=== PATIENT | male | born 1950 | race Caucasian/White ===

== ENCOUNTER 2018-03-08 12:24 | Outpatient (CLI) | payer MEDICARE, SELFPAY ==
--- NOTE | 2018-03-08 11:55 | DI.RAD_ITS ---
SYMPTOM/DIAGNOSIS: COUGH, SOB, R05 PA AND LATERAL CHEST: The cardiac and mediastinal contours have a normal appearance. The lungs are well inflated and clear. No infiltrate or effusion is seen. IMPRESSION: Negative chest xray.
== END 2018-03-08 12:44 ==
PROVIDERS: PCP Emergency Medicine; Visit Provider Emergency Medicine
DX: R05 Cough (principal); R06.02 Shortness of breath
CPT/HCPCS: 71046

== ENCOUNTER 2018-08-17 11:05 | Outpatient (CLI) | payer MEDICARE, SELFPAY ==
[2018-08-18 10:03] LABS: PSA, Screening 5.1 ng/ml (0-4.5)
== END 2018-08-17 11:25 ==
PROVIDERS: PCP Emergency Medicine; Visit Provider Emergency Medicine
DX: Z12.5 Encounter for screening for malignant neoplasm of prostate (principal)
CPT/HCPCS: 36415; 84153

== ENCOUNTER 2018-08-24 12:35 | Outpatient (CLI) | payer MEDICARE, SELFPAY ==
[2018-08-25 09:40] LABS: PSA, Diagnostic 3.8 ng/ml (0-4.5)
== END 2018-08-24 12:55 ==
PROVIDERS: PCP Emergency Medicine; Visit Provider Emergency Medicine
DX: R97.20 Elevated prostate specific antigen [PSA] (principal)
CPT/HCPCS: 36415; 84153

== ENCOUNTER 2019-08-22 14:15 | Outpatient (REF) | payer MEDICARE, SELFPAY ==
[2019-08-22 22:01] LABS: Calculated LDL 97 mg/dL (<100); Cholesterol 176 mg/dL (<200); HDL Cholesterol 27 mg/dL (40-60); Triglyceride 262 mg/dL (<150)
[2019-08-24 09:09] LABS: PSA, Screening 4.2 ng/mL (0.0-4.5)
== END 2019-08-22 14:35 ==
LOC: LBN 14:15
PROVIDERS: PCP Emergency Medicine; Visit Provider Emergency Medicine
DX: R07.9 Chest pain, unspecified (principal); Z12.5 Encounter for screening for malignant neoplasm of prostate
CPT/HCPCS: 80061; 84153

== ENCOUNTER 2020-08-29 09:56 | Outpatient (REF) | payer MEDICARE, SELFPAY ==
--- NOTE | 2020-08-29 08:50 | SKI_PTH ---
PATIENT: Bharat Perla LOC: [facility]#:[id number] AGE/SX: 69/M ROOM: RE08/29/[address]: Garrett Mendoza DO : 1950 BED: DIS: 08/29/2020 SPEC #: [id number] RECD: 08/29/20 12:47 STATUS: JJ RERacquel #: [id number] BRANDIE: 08/29/20 08:[address]: Garrett Mendoza DEPT: Surgical Specimen RECD BY: Vianey Bartholomew Tissues: 1 - SKIN BIOPSY(SHAVE/PUNCH) Procedures: SKIN LEVEL 4 Comments: [id number]
== END 2020-08-29 09:57 | disposition home or self-care (01) ==
LOC: NCHCN 09:56
PROVIDERS: PCP Emergency Medicine; Visit Provider Emergency Medicine
DX: L82.1 Other seborrheic keratosis (principal)
CPT/HCPCS: 88305

== ENCOUNTER 2020-09-06 11:39 | Outpatient (CLI) | payer MEDICARE, SELFPAY ==
[2020-09-06 18:32] LABS: PSA, Diagnostic 4.9 ng/mL (0.0-6.5)
== END 2020-09-06 11:40 | disposition home or self-care (01) ==
LOC: LBO 11:42
PROVIDERS: PCP Emergency Medicine; Visit Provider Emergency Medicine
DX: R97.20 Elevated prostate specific antigen [PSA] (principal)
CPT/HCPCS: 36415; 84153

== ENCOUNTER → 2021-04-17 10:01 | Outpatient (BNVA) | payer MEDICARE, SELFPAY | PROVIDERS: PCP Family Medicine; Referring Provider Emergency Medicine; Visit Provider Physical Therapy Assistant | DX: Z12.11 Encounter for screening for malignant neoplasm of colon (principal); Z86.010 Personal history of colon polyps ==

== ENCOUNTER 2021-04-30 01:34 | Outpatient (CLI) | payer MEDICARE, SELFPAY ==
[2021-04-30 11:38] LABS: Source Nasal/Nares
[2021-04-30 14:25] LABS: COVID-19 PCR Negative (Negative)
== END 2021-04-30 01:35 | disposition home or self-care (01) ==
PROVIDERS: PCP Family Medicine; Visit Provider Surgery
DX: Z20.822 Contact with and (suspected) exposure to COVID-19 (principal)
CPT/HCPCS: 87635; U0005

== ENCOUNTER 2021-05-02 07:17 | Day surgery (SDC) | payer MEDICARE, SELFPAY ==
--- NOTE | 2021-05-01 10:16 | W.COLOREPORT ---
Colonoscopy Report Date of procedure: 05/02/21 Pre-op diagnosis general: Adenomatous polyps Post-op diagnosis procedure note: same Surgeon: Jenni Ma Anesthesia Type: General:No Airway Complications: None Disposition: same day Prep: Miralax/Dulcolax Retraction Time: 9 Procedure Description: After informed consent was obtained the patient was taken to the procedure room and placed in a left decubitous position. Monitors were applied and a time out was done. The patients name, date of , procedure, allergies to medications and metal in their body was reviewed. The patient was then sedated. Once sedated and comfortable a rectal exam was done. External exam was normal. Internal exam revealed a normal sphincter tone and no palpable masses. The prostate nl The scope was then introduced and retrofelexed. no hemorrhoidal tags/ no internal hemorrhoids were identified. The scope was then advanced to the cecum without difficulty. The TI and appendiceal orifice were identified. The prep was be BPS?3 in all segments for total of 9.The scope was then slowly retracted over 9 minutes back into the rectum. He has a small 5 mm flat polyp at 20 cm. This was removed with a cold biopsy forcep. All specimen is retrieved and no bleeding is noted. The mucosa is pink and healthy with a normal vasculature pattern. There is no diverticula. Scope was removed and the patient was woken up and taken back to Same day surgery in stable condition. The patient tolerated the procedure well and there were no immediate complications. Follow up: The patient should follow up in 7 years unless they develop changes in bowel habits or other new gastrointestinal complaints.
--- NOTE | 2021-05-01 10:17 | PDOC.DSDIS_ITS ---
Discharge Plan Disposition Patient Disposition: HOME Condition: Good Discharge Details Reason For Visit: colon scope Attending Provider: Jenni Ma Primary Care Provider: Dajuan Birmingham Home Meds and New Rx's Prescriptions: Continued tadalafil [Cialis] 10 mg tablet 10 mg PO DAILY PRN (Reason: sexual activity) Qty: 1 8RF Rx Instructions: administer approximately 30min before sexual activity; do not use more than 1 dose per 24hrs omega-3 fatty acids-fish oil 1 EACH capsule 1 cap PO DAILY 0RF Discontinued bisacodyl [Dulcolax (bisacodyl)] 5 mg tablet,delayed release (DR/EC) 5 mg PO ONCE Qty: 4 0RF Rx Instructions: Take according to provider's instructions for colonoscopy prep. polyethylene glycol 3350 17 gram/dose powder 17 g PO ONCE Qty: 238 0RF Rx Instructions: To be taken as directed by prescriber's office for colonoscopy prep. Discharge Instructions Additional Instructions: DSU Colonoscopy Post- Op Instructions Instructions for Everyone who is given Anesthesia: For your safety, please do the following for the next twenty-four (24) hours: *Do Not operate a motor vehicle (car, truck, motorcycle, etc.) *Do Not drink alcoholic beverages or use any recreational drugs for the first 24 hours or while taking pain medications. The medications in your body may have a reaction that can be dangerous. *Do Not make any important decisions or sign any important papers. Findings: x1 small polyp Follow up: My office will send a letter in 2 to 3 weeks time detailing as to what type of polyp it was and if we want you to repeat the colonoscopy 1. No lifting over 20 pounds or strenuous activity for the first 24 hours after your procedure. After 24 hours there are no restrictions on your activity but you may feel fatigued for a few days. 2. After you arrive home you may have a light meal and return to your normal diet as you can tolerate it without feeling sick to your stomach. 3. You may have a bloated, gaseous feeling in your belly (abdomen) after a colonoscopy. Passing gas and belching will help. Walking or lying down on your l eft side with your knees flexed may relieve the discomfort. Call the office at [phone] (Office) or [phone] (Hospital) right away if you notice any of the following: a.Vomiting of blood or ?coffee ground stools?. b.Rectal bleeding 1Tbsp, blood clots or continuous bleeding. c.Severe belly (abdominal) pain. d.A hard distended belly (abdomen) and an inability to pass gas. 4. Please don?t expect to have a normal BM (bowel movement) for 2-3 days after your procedure. 5. If there are questions regarding the findings of your procedure, please contact your doctor 6. If you are unable to contact your doctor with a problem, contact the hospital at [phone]. 7. Continue all your regular medications unless directed otherwise. I understand the above instructions and have no questions. Signature of Patient or Adult Escort Name of Responsible Adult Escort Signature of Nurse Date/Time Activity:: See above Diet:: See above Discharge Orders Discharge Orders: Discharge Order (Routine); Ordered 05/01/21 Ordered By: Jenni Ma
[2021-05-02 07:44] VITALS: BP 135/76; PULSE 67; RESP 16; TEMP 36.5; O2SAT 97
--- NOTE | 2021-05-02 07:54 | W.ANESPRE ---
General Info Date of Service Date Performed: 05/02/21 Height: 5 ft 10 in Weight: 88.5 kg Body Mass Index (BMI): 28.0 Surgical Procedure: Operation Date: 05/02/21 08:20 Proposed Procedure Side Surgeon jori Ma, Meds Allergies and Home Medications Allergies Allergy/AdvReac Type Severity Reaction Status Date / Time atorvastatin AdvReac Severe JOINT PAIN Verified 05/02/21 07:42 Home Medication Medication Instructions Recorded omega-3 fatty acids-fish oil 300 1 cap PO DAILY 06/09/12 mg-1,000 mg capsule tadalafil 10 mg tablet (Cialis) 10 mg PO DAILY PRN #1 tab 08/22/19 bisacodyl 5 mg tablet,delayed 5 mg PO ONCE #4 tab 04/17/21 release (Dulcolax (bisacodyl)) polyethylene glycol 3350 17 17 g PO ONCE #238 g 04/17/21 gram/dose oral powder Current Visit Medications: Current Medications Generic Name Dose Route Start Last Admin Trade Name Freq PRN Reason Stop Dose Admin Hyoscyamine Sulfate 0.125 mg 05/01/21 10:14 Hyoscyamine 0.125 Mg Sl/Oral/Chew SL DIRECTED PRN Ringer's Solution 1,000 mls @ 80 mls/hr 05/02/21 06:00 IV 05/31/21 23:59 INFUSION VERA IV Miscellaneous Supplies 1 each 05/02/21 06:00 Iv Access IV 05/31/21 23:59 DIRECTED VERA Ondansetron HCl 4 mg 05/01/21 10:14 Ondansetron 4 Mg/2 Ml Vial IVP Q4H PRN PRN Nausea / Vomiting Sodium Chloride 0 ml 05/02/21 06:00 Normal Saline Flush 10 Ml Syr IV 05/31/21 23:59 PRN PRN Sodium Chloride 0 ml 05/02/21 06:00 Normal Saline 10 Ml Vial IJ 05/31/21 23:59 DIRECTED PRN Sterile Water 0 ml 05/02/21 06:00 Water,Injection,Sterile 10 Ml Vial IJ 05/31/21 23:59 DIRECTED PRN PFSH Active Problems Active Problems: Problem Status Onset Code Screening for colon cancer Z12.11 Polyp of colon 01/28/16 K63.5 Dyspnea R06.00 Chest pain R07.9 Medical History Medical History Elevated PSA Generalized osteoarthrosis LS DJD Hyperlipidemia type IV Impaired fasting glucose Non-alcoholic fatty liver disease Rosacea Sciatica, unspecified side (06/26/15) Surgical History Surgical History Cholecystectomy (~2002) Colonoscopy - IV Sedation (01/28/16) Status post cholecystectomy Tobacco Smoking/Tobacco Use Status: Former Tobacco Use Passive smoking exposure: Yes Second hand exposure: Yes Alcohol Alcohol Intake: current Alcohol intake frequency: a few times a month Alcohol type: wine Substance Use Substance use: Never Substance use type: does not use Vital Signs and Lab Results Vital Signs Most Recent Vital Signs in EMR: Most Recent Vital Signs Temp Pulse Resp BP Pulse Ox 36.5 C 67 16 135/76 97 05/02/21 07:44 05/02/21 07:44 05/02/21 07:44 05/02/21 07:44 05/02/21 07:44 Lab Results Blood Type / Crossmatch: No Data to Display Complete Blood Count: No Data to Display Complete Metabolic Panel: No Data to Display Liver Function Panel: No Data to Display Coagulation Panel: No Data to Display Cardiac Panel: No Data to Display Arterial Blood Gas: No Data to Display Venous Blood Gas: No Data to Display Pancreas Panel: No Data to Display Thyroid Panel: No Data to Display Infectious Disease: Coronavirus (COVID-19)(PCR) Negative (Negative) 04/30/21 09:30 04/30/21 Coronavirus 2019 Source Nasal/Nares 04/30/21 09:30 04/30/21 Blood Cultures: No Data to Display Toxicology Panel: No Data to Display Anesthesia Assessment and Plan Anesthesia History Personal History: No History of Anesthesia Complications Family History: No Family History of Anesthesia Complications Exercise Tolerance Exercise Tolerance: Metabolic Equivalents>4 Pertinent Negatives Pertinent Negatives: No Symptoms of GERD Cardiac & Pulmonary Exam Cardiac Exam: Normal S1/S2 Heart Sounds Pulmonary Exam: Clear Bilateral Breath Sounds Implantable Cardiac Device Does patient have a Pacemaker or an ICD?: No Airway Exam Known Difficult Airway: No Mallampati Class: 2 Mouth Opening: Normal (> 3cm) Thyromental Distance: Greater than 3 cm Neck Range of Motion: Full ROM Neck Circumference: Normal Teeth Condition: Normal Dentition Tooth Numberin. Chipped tooth ASA Classification ASA Score: ASA 2 Emergency Case?: No NPO Status NPO Status: NPO Clears >2 hours, Solids >8 hours Anesthesia Plan Resuscitation Status: Full Code Anesthesia Technique: General Anesthesia Airway Planned: Natural Airway Monitors Used: Standard Monitors
[2021-05-02] MEDS: Lactated Ringers 1,000 ML 80 ML IV (07:55)
[2021-05-02 07:57] VITALS: BMI 28.0
--- NOTE | 2021-05-02 08:44 | BOWEL_PTH ---
PATIENT: Bharat Perla LOC: [facility] U#:[id number] AGE/SX: 70/M ROOM: RE05/02/[address]: Jenni Ma : 1950 BED: DIS: 05/02/2021 SPEC #: [id number] RECD: 05/02/21 12:54 STATUS: JJ REQ #: [id number] BRANDIE: 05/02/21 08:[address]: Jenni Ma DEPT: Surgical Specimen RECD BY: Vianey Bartholomew ENTERED: 05/02/21 12:56 SP TYPE: Bowel OTHR DR: Dajuan Birmingham Tissues: 1 - BIOPSY BOWEL Procedures: GROSS AND MICRO LEVEL 4 Comments: [id number]
[2021-05-02 08:50] VITALS: BP 95/51; PULSE 75; RESP 16; TEMP 36.5; O2SAT 95
--- NOTE | 2021-05-02 09:00 | W.ANESPOSTOP ---
Postoperative Evaluation Date, Time and Location Date Performed: 05/02/21 Time Performed: 08:54 Patient Location: Day Surgery Unit Vital Signs Most Recent Imported Vital Signs: Most Recent Vital Signs Temp Pulse Resp BP Pulse Ox 36.5 C 75 16 95/51 L 95 05/02/21 08:50 05/02/21 08:50 05/02/21 08:50 05/02/21 08:50 05/02/21 08:50 Pain Score Most Recent Pain Score: Most Recent Pain Score Pain Level 0 05/02/21 08:50 Assessment Mental Status: Awake (Alert & Oriented to Patient Baseline) Airway and Respiratory Function: Patent airway with normal (patient baseline) respiratory exam Cardiovascular Function: Hemodynamically Stable Hydration Status: Adequately Hydrated Nausea & Vomiting: No Nausea or Vomiting Pain: Pt. Denies Any Pain Peripheral Nerve Block: Patient did not receive a nerve block
[2021-05-02 09:12] VITALS: BP 102/66; PULSE 59; RESP 16; TEMP 36.3; O2SAT 97
== END 2021-05-02 09:48 | disposition home or self-care (01) ==
LOC: SUR 07:17
PROVIDERS: PCP Family Medicine; Visit Provider Surgery
PROC: 0DJD8ZZ Inspection of Lower Intestinal Tract, Via Natural or Artificial Opening Endoscopic (ICD-10-PCS; CPT 45378; principal; 2021-05-02 08:15)
DX: Z86.010 Personal history of colon polyps (principal); E78.5 Hyperlipidemia, unspecified; K76.0 Fatty (change of) liver, not elsewhere classified; K63.5 Polyp of colon
CPT/HCPCS: 45380; 88305; J2001

== ENCOUNTER 2021-09-23 11:06 | Outpatient (CLI) | payer MEDICARE, SELFPAY ==
[2021-09-23 12:54] LABS: Calculated LDL 76 mg/dL (<100); Cholesterol 166 mg/dL (<200); HDL Cholesterol 32 mg/dL (40-60); Triglyceride 294 mg/dL (<150)
[2021-09-23 22:33] LABS: PSA, Screening 4.1 ng/mL (<=6.5)
[2021-09-24 11:26] LABS: Hep B Core Antibody Negative (Negative)
== END 2021-09-23 11:07 | disposition home or self-care (01) ==
LOC: LOS 11:06
PROVIDERS: PCP Family Medicine; Visit Provider Family Medicine
DX: E78.5 Hyperlipidemia, unspecified (principal); Z11.59 Encounter for screening for other viral diseases; Z12.5 Encounter for screening for malignant neoplasm of prostate
CPT/HCPCS: 36415; 80061; 84153; 86704

== ENCOUNTER → 2022-10-06 00:45 | Outpatient (CLI) | payer MEDICARE, SELFPAY ==
--- NOTE | 2022-10-06 07:15 | ETT_ITS ---
APPROVED REPORT Exam: Exercise Treadmill Patient Location: Out-Patient Room/Bed: Stress Nurse: Larisa Dc RN Ordering Provider:KRISTEN FRANCE, Contact Number: [phone] BMI: 27.97 Baseline Rhythm: Sinus Rhythm Indications: Chest pain Medical History Medical History: Dyspnea, COVID, Bilat shoulder pain, HLD, impaired fasting glucose, non alcoholic fa tty liver disease, sciatica Cardiac Medications: Tadalafil Allergies: Atorvastatin Cardiac Risk Factors: Famioly, HLD, former smoker Previous Cardiac Procedures: None Pretest Chest Pain Characteristics: None Exercise History: Sedentary Physical Disabilities: None Lung Sounds: Clear to auscultation Heart Sounds: Regular Stress Test Details Test: Exercise stress testing was performed using a Han protocol. Rest Stress HR Resting HR Supine: 61 bpm Max Heart Rate (APMHR): 147 bpm Resting HR Standin bpm Target HR (85% APMHR): 125 bpm Max HR Achieved: 135 bpm % of APMHR: 92 Recovery HR: 69 bpm HR response to stress: Normal HR response to stress BP Resting BP Supine: 172/78 mmHg Resting BP Standin/68 mmHg Max BP: 212/74 mmHg Recovery BP: 164/74 mmHg BP response to stress: Abnormal hypertensive response to stress. ECG Resting ECG: Sinus Rhythm Ectopy: None Stress ECG: Sinus Tachycardia ST Change: Downsloping ST depression, Horizontal ST depression Lead(s): inferior leads, V6 Stage: [address] Deviation: 1-3 mm Arrhythmia: Rare PVC Recovery ECG: Sinus Rhythm Recovery ST Change: Downsloping ST depression Lead(s): inferior leads, V6 Recovery ST Deviation: 1-3 mm Recovery Arrhythmia: None Comment: ST depression returns to baseline by end of recovery Clinical Reason for Termination: Fatigue, Target HR Achieved Stress Symptoms: Mild SOB Exercise duration: 08 min04 sec Highest Stage Reached: Stage 3: 3.4 mph at 14% grade. Exercise capacity: 10.16 METs Angina Score: None Benitez Treadmill Score: 6.0 Rate Pressure Product: 59172 Stress ECG Conclusion 1. Resting electrocardiogram was within normal limits 2. Patient exercised on the Han protocol and completed a workload of 10.16 METS 3. Mildly hypertensive blood pressure response to exercise. Normal heart rate response to exercise. Peak heart rate achieved was 92% of maximal predicted for age 4. At peak exercise there was approximately [address] depression in leads II, III, aVF, V5 and V6 co nsistent with myocardial ischemia 5. There were no significant dysrhythmias 6. Suggest repeat with imaging if clinically indicated Benitez Treadmill Score is 6.0 which is Low risk. Stress Test Summary STAGE Time (mins) Speed (mph) Grade (%) HR BP SpO2 SYMPTOMS METS Supine 61 172/78 95 Standing 67 138/68 95 1 3 1.7 10 94 180/62 95 4.5 2 6 2.5 12 111 200/70 95 7 3 9 3.4 14 133 Mild-mod SOB 10 1 min recovery 111 192/52 3 min recovery 74 212/74 6 min recovery 69 164/74
== END ==
PROVIDERS: PCP Family Medicine; Visit Provider Family Medicine
DX: R07.9 Chest pain, unspecified (principal)
CPT/HCPCS: 93016; 93018; 93017

== ENCOUNTER 2022-10-08 02:18 | Outpatient (CLI) | payer MEDICARE, SELFPAY ==
[2022-10-08 11:35] LABS: Calculated LDL 85 mg/dL (<100); Cholesterol 159 mg/dL (<200); Glucose 83 mg/dL (74-106); HDL Cholesterol 31 mg/dL (40-60); Triglyceride 219 mg/dL (<150)
[2022-10-09 11:13] LABS: Hepatitis C Ab w Rflx HCV PCR Negative (Negative)
== END 2022-10-08 02:19 | disposition home or self-care (01) ==
PROVIDERS: PCP Family Medicine; Visit Provider Family Medicine
DX: R73.9 Hyperglycemia, unspecified (principal); Z11.59 Encounter for screening for other viral diseases; E78.5 Hyperlipidemia, unspecified
CPT/HCPCS: 36415; 80061; 82947; 86803

== ENCOUNTER 2022-10-19 13:57 | Outpatient (CLI) | payer MEDICARE, SELFPAY ==
--- NOTE | 2022-10-19 13:45 | RT.EKG_ITS ---
APPROVED REPORT Exam: Resting ECG Reason for Exam: Baseline Needed Patient Location: O HR:63 bpm ECG Measurements Heart Rate 63 AXIS NE 189 P 19 QRSd 87 QRS 20 QT 390 T 17 QTc 400 Conclusion Sinus rhythm...normal P axis, V-rate 50- 99 Normal Electrocardiogram
== END 2022-10-19 13:58 | disposition home or self-care (01) ==
LOC: DI.CARD 13:59
PROVIDERS: PCP Family Medicine; Visit Provider Internal Medicine Cardiovascular Disease
DX: R06.00 Dyspnea, unspecified (principal); R07.9 Chest pain, unspecified
CPT/HCPCS: 93010

== ENCOUNTER → 2022-10-19 13:58 | Outpatient (BNVA) | payer MEDICARE, SELFPAY | PROVIDERS: PCP Family Medicine; Referring Provider Family Medicine; Visit Provider Internal Medicine Cardiovascular Disease | DX: R94.30 Abnormal result of cardiovascular function study, unspecified (principal) | CPT/HCPCS: 93005; 99203; 99213 ==

== ENCOUNTER → 2022-10-29 01:53 | Outpatient (CLI) | payer MEDICARE, SELFPAY ==
--- NOTE | 2022-10-29 07:15 | DI.NM_ITS ---
APPROVED REPORT Exam: Exercise Treadmill Patient Location: Out-Patient Room/Bed: Stress Nurse: Yesenia Benavides RN Ordering Provider:SACHI SHERMAND, Contact Number: BMI: 27.97 Baseline Rhythm: Sinus Rhythm Comment: PVC's Indications: Chest pain, Abnormal ETT Medical History Medical History: HLD, hx of COVID 19 infection, dyspnea Cardiac Medications: None Allergies: Atorvastin Cardiac Risk Factors: +family history, +HLD Previous Cardiac Procedures: None Pretest Chest Pain Characteristics: None Exercise History: Physically active Physical Disabilities: None Lung Sounds: LCTA Heart Sounds: Regular, S1/S2 Stress Test Details Test: Exercise stress testing was performed using a Han protocol. Nuclear Acquisition: Rest Tc-99m/Stress Tc-99m 1 day Rest Isotope: Tc-99m Sestamibi. Dose: 10 Date: 10/29/2022 Injection Time: 9:00 Stress Isotope: Tc-99m Sestamibi. Dose: 31 Date: 10/29/2022 Injection Time: 10:27 HR Resting HR Supine: 52 bpm Max Heart Rate (APMHR): 147.986059 bpm Resting HR Standin bpm Target HR (85% APMHR): 124.064722 bpm Max HR Achieved: 145 bpm % of APMHR: 98.64 Recovery HR: 69 bpm HR response to stress: Normal HR response to stress BP Resting BP Supine: 172/88 mmHg Resting BP Standin/70 mmHg Max BP: 190/88 mmHg Recovery BP: 172/86 mmHg BP response to stress: Normal blood pressure response to stress. ECG Resting ECG: Sinus Rhythm Ectopy: PVC's Stress ECG: Sinus Tachycardia ST Change: Upsloping ST depression Lead(s): I, II, III, aVF, V5, V6 Stage: [address] Deviation: 3-4 mm Arrhythmia: PVC's, 4 beat run VT Recovery ECG: Sinus Rhythm Recovery ST Change: ST depression continued in recovery stages and began to recover to baseline aroun d 1-2 minutes Lead(s): I, II, III, aVF, V5, V6 Recovery ST Deviation: 2-3 mm Recovery Arrhythmia: PVC's Clinical Reason for Termination: ST changes,Target HR Achieved Stress Symptoms: Dyspnea Exercise duration: 9 min14 sec Highest Stage Reached: Stage 4: 4.2 mph at 16% grade. Exercise capacity: 10.52 METs Angina Score: None Benitez Treadmill Score: -2.0 Rate Pressure Product: 12000 Stress ECG Conclusion 1. Resting electrocardiogram was within normal limits 2. Patient exercised on the Han protocol and completed a workload of 10.52 METS 3. Normal heart rate and blood pressure response to exercise. The patient achieved 99% of predicted heart rate for age 4. Ventricular ectopic beats couplets and triplets were noted 5. Electrocardiographic portion of the test was consistent with myocardial ischemia 6. See MPI report Benitez Treadmill Score is -2.0 which is Moderate risk. Stress Test Summary STAGE Time (mins) Speed (mph) Grade (%) HR BP SpO2 SYMPTOMS METS Supine 52 172/88 97% Standing 55 130/70 1 3 1.7 10 84 160/60 4.5 2 6 2.5 12 103 180/80 Dyspnea 7 3 9 3.4 14 138 Dyspnea 10 4 12 4.2 16 140 Dyspnea 13 1 min recovery 118 170/60 99% 3 min recovery 74 190/88 6 min recovery 69 172/86 MPI Conclusion Myocardial perfusion is normal. There is no ischemia or evidence of prior infarction EF is 52% with normal wall motion Radiologist Interpretation Radiologist agrees with Professional Services Manager's Interpretation. Radiologist Interpretation by: Carmen Olmedo MD Interpretation Date/Time: 10/30/2022 15:25:10
== END ==
PROVIDERS: PCP Family Medicine; Visit Provider Internal Medicine Cardiovascular Disease
DX: R07.9 Chest pain, unspecified (principal); R94.30 Abnormal result of cardiovascular function study, unspecified
CPT/HCPCS: 78452; 93016; 93018; 93017

== ENCOUNTER 2023-10-06 03:27 | Outpatient (CLI) | payer MEDICARE, SELFPAY ==
[2023-10-06 14:36] LABS: Cholesterol 166 mg/dL (<200); HDL Cholesterol 31 mg/dL (40-60); Triglyceride 421 mg/dL (<150)
[2023-10-06 14:53] LABS: LDL CHOLESTEROL 96 mg/dL (<100)
== END 2023-10-06 03:28 | disposition home or self-care (01) ==
LOC: LBO 03:27
PROVIDERS: PCP Family Medicine; Visit Provider Family Medicine
DX: E78.5 Hyperlipidemia, unspecified (principal)
CPT/HCPCS: 36415; 80061; 83721

== ENCOUNTER 2024-10-19 10:40 | Outpatient (CLI) | payer MEDICARE, SELFPAY ==
[2024-10-19 10:37] LABS: Calculated LDL 103 mg/dL (<100); Cholesterol 173 mg/dL (<200); HDL Cholesterol 30 mg/dL (>or=40); Triglyceride 204 mg/dL (<150)
== END 2024-10-19 10:41 | disposition home or self-care (01) ==
LOC: LBO 10:43
PROVIDERS: PCP Family Medicine; Visit Provider Family Medicine
DX: E78.5 Hyperlipidemia, unspecified (principal); Z13.220 Encounter for screening for lipoid disorders
CPT/HCPCS: 36415; 80061